=== PATIENT | male | born 1990 | race American Indian/Alaskan Native ===

== ENCOUNTER 2018-12-18 21:40 | Emergency (ER) | payer OTHER ==
--- NOTE | 2018-12-18 22:33 | Emergency Department Report ---
Blank Doc - Documentation Documentation: 4 -5 day history of flucutative sharp and spastic shoulder pain worse with rom. OTC rx and massages no help. no fever or chills. no trauma. Plan xray
--- NOTE | 2018-12-19 00:41 | Emergency Department Report ---
ED Upper Extremity Inj HPI - General Chief Complaint: Extremity Injury, Upper Stated Complaint: LEFT SHOULDER PAIN Time Seen by Provider: 12/18/18 22:31 Source: patient Mode of arrival: Ambulatory Limitations: No Limitations - History of Present Illness Complaint: Injury to:: left, shoulder -: days(s) (4 days has gotten worst), week(s) (2) Handedness: right Severity scale (0 -10): 10 - Related Data Previous Rx's Medication Instructions Recorded Last Taken Type Baclofen [Lioresal] 10 mg PO TID #15 tab 12/19/18 Unknown Rx Naproxen [Naprosyn TAB] 500 mg PO BID #15 tablet 12/19/18 Unknown Rx Allergies Allergy/AdvReac Type Severity Reaction Status Date / Time No Known Allergies Allergy Unverified 12/18/18 22:30 ED Review of Systems ROS: Stated complaint: LEFT SHOULDER PAIN Other details as noted in HPI Comment: All other systems reviewed and negative ED Past Medical Hx - Past Medical History Previous Medical History?: No - Surgical History Past Surgical History?: No - Social History Smoking Status: Current Every Day Smoker Substance Use Type: Alcohol, Marijuana - Medications Home Medications: Home Medications Medication Instructions Recorded Confirmed Last Taken Type Baclofen [Lioresal] 10 mg PO TID #15 tab 12/19/18 Unknown Rx Naproxen [Naprosyn TAB] 500 mg PO BID #15 tablet 12/19/18 Unknown Rx ED Physical Exam - General Limitations: No Limitations General appearance: alert, in no apparent distress - Head Head exam: Present: atraumatic, normocephalic - Eye Eye exam: Present: EOMI - ENT ENT exam: Present: mucous membranes moist - Neck Neck exam: Present: full ROM. Absent: lymphadenopathy - Respiratory Respiratory exam: Present: normal lung sounds bilaterally. Absent: respiratory distress - Cardiovascular Cardiovascular Exam: Present: regular rate, normal rhythm. Absent: systolic murmur, diastolic murmur, rubs, gallop - Expanded Upper Extremity Exam Left Shoulder Exam: Present: full ROM, tenderness, crepidus. Absent: swelling, abrasion, laceration, ecchymosis, deformity Upper Arm exam: Present: normal inspection, full ROM. Absent: tenderness, swelling - Back Exam Back exam: Present: normal inspection, full ROM. Absent: tenderness - Psychiatric Psychiatric exam: Present: normal affect, normal mood - Skin Skin exam: Present: warm, dry, intact, normal color. Absent: rash ED Course Vital Signs 12/18/18 22:28 Temperature 98.3 F Pulse Rate 83 Respiratory 18 Rate Blood Pressure 127/67 O2 Sat by Pulse 100 Oximetry ED Medical Decision Making - Radiology Data Radiology results: report reviewed Patient: ALTHEA GALLAGHER MR#: [id number] : 1990 Acct:[id number] Age/Sex: 28 / M ADM Date: 12/18/18 Loc: ED Attending Dr: Ordering Physician: NICHOLE GALLO Date of Service: 12/18/18 Procedure(s): XR shoulder 2+V LT Accession Number(s): [id number] cc: NICHOLE GALLO Fluoro Time In Minutes: PROCEDURE: XR SHOULDER 2+V LT TECHNIQUE: 3 views obtained of the left shoulder HISTORY: shoulder pain worse with rom COMPARISONS: No priors FINDINGS: No evidence of acute fracture or dislocation. Glenohumeral and acromioclavicular joints are within normal limits. IMPRESSION: Normal radiographic appearance of the left shoulder.. This document is electronically signed by Colin Deng MD., December 19 2018 01:03:46 AM ET Transcribed By: NIRAV Dictated By: COLIN DENG MD Electronically Authenticated By: COLIN DENG MD Signed Date/Time: 12/19/18 0105 DD/ 2359 TD/TT: 12/19/18 0000 Patient: ALTHEA GALLAGHER MR#: [id number] : 1990 Acct:[id number] Age/Sex: 28 / M ADM Date: 12/18/18 Loc: ED Attending Dr: Ordering Physician: NICHOLE GALLO Date of Service: 12/18/18 Procedure(s): XR spine cervical 2-3V Accession Number(s): [id number] cc: NICHOLE GALLO Fluoro Time In Minutes: PROCEDURE: XR SPINE CERVICAL 2-3V TECHNIQUE: 3 views of the cervical spine HISTORY: pain radiates to shoulder COMPARISONS: No priors. FINDINGS: There are minimal degenerative changes of the cervical spine with mild vertebral endplate bony spurring at C4 and C5. Alignment is anatomic. Intervertebral disc spaces are preserved. No prevertebral soft tissue swelling. Open-mouth view of the odontoid within normal limits. IMPRESSION: Minimal degenerative changes of the cervical spine with preservation of intervertebral disc spaces. Limited evaluation based on the 3 views obtained.. This document is electronically signed by Colin Deng MD., December 19 2018 01:05:32 AM ET Transcribed By: NIRAV Dictated By: COLIN DENG MD Electronically Authenticated By: COLIN DEGN MD Signed Date/Time: 12/19/18 0107 DD/ 0000 TD/TT: 12/19/18 0001 - Medical Decision Making Patient has been evaluated by this provider fast track. Ibuprofen and tramadol for pain management. X-ray of left shoulder completed. Critical care attestation.: If time is entered above; I have spent that time in minutes in the direct care of this critically ill patient, excluding procedure time. ED Disposition Clinical Impression: Shoulder pain, acute Qualifiers: Laterality: left Qualified Code(s): M25.512 - Pain in left shoulder Disposition: DC-01 TO HOME OR SELFCARE Is pt being admited?: No Does the pt Need Aspirin: No Condition: Stable Instructions: Arthralgia (ED), Shoulder Sprain (ED) Additional Instructions: Take pain medication and muscle relaxant as prescribed. These do not operate heavy machinery or take a muscle relaxant. If his symptoms persist or gets worse please follow his primary care provider. Prescriptions: Baclofen [Lioresal] 10 mg PO TID #15 tab Naproxen [Naprosyn TAB] 500 mg PO BID #15 tablet Referrals: JUAN SALAS MD [Primary Care Provider] - 3-5 Days Forms: Accompanied Note, Work/School Release Form(ED)
[2018-12-19] MEDS ORDERED: IBUPROFEN PO ONE (00:42)
[2018-12-19] MEDS ORDERED: ULTRAM PO ONE (00:42)
--- NOTE | 2018-12-19 01:05 | XRay Report ---
PROCEDURE: XR SHOULDER 2+V LT TECHNIQUE: 3 views obtained of the left shoulder HISTORY: shoulder pain worse with rom COMPARISONS: No priors FINDINGS: No evidence of acute fracture or dislocation. Glenohumeral and acromioclavicular joints are within normal limits. IMPRESSION: Normal radiographic appearance of the left shoulder.. This document is electronically signed by Colin Deng MD., December 19 2018 01:03:46 AM ET
--- NOTE | 2018-12-19 01:07 | XRay Report ---
PROCEDURE: XR SPINE CERVICAL 2-3V TECHNIQUE: 3 views of the cervical spine HISTORY: pain radiates to shoulder COMPARISONS: No priors. FINDINGS: There are minimal degenerative changes of the cervical spine with mild vertebral endplate bony spurri ng at C4 and C5. Alignment is anatomic. Intervertebral disc spaces are preserved. No prevertebral soft tissue swelling. Open-mouth view of the odontoid within normal limits. IMPRESSION: Minimal degenerative changes of the cervical spine with preservation of intervertebral disc spaces. Limited evaluation based on the 3 views obtained.. This document is electronically signed by Colin Deng MD., December 19 2018 01:05:32 AM ET
[2018-12-19 02:08] VITALS: BP 116/84
== END 2018-12-19 02:08 | disposition home or self-care (01) ==
LOC: ED 21:40
DX: M25.512 Pain in left shoulder (principal); F17.200 Nicotine dependence, unspecified, uncomplicated; F12.10 Cannabis abuse, uncomplicated
CPT/HCPCS: 72040

== ENCOUNTER 2019-06-21 19:26 | Emergency (ER) | payer SELFPAY ==
--- NOTE | 2019-06-21 19:44 | Event Note ---
ED Screening Note Date of service: 06/21/19 Time: 19:43 ED Screening Note: 29 y/o male comes in for right hand injury about 2 hours. This initial assessment/diagnostic orders/clinical plan/treatment(s) is/are subject to change based on patients health status, clinical progression and re-assessment by fellow clinical providers in the ED. Further treatment and workup at subsequent clinical providers discretion. Patient/guardian urged not to elope from the ED as their condition may be serious if not clinically assessed and managed. Initial orders include:
[2019-06-21] MEDS ORDERED: IBUPROFEN 600 MG TAB PO ONE (20:15)
[2019-06-21] MEDS ORDERED: HYDROcodone/ACETAMINOPHEN 7.5-325MG TAB PO ONE (20:15)
[2019-06-21] MEDS ORDERED: ONDANSETRON 4 MG ODT TAB PO ONE (20:15)
--- NOTE | 2019-06-21 20:27 | XRay Report ---
Right hand, 3 views INDICATION: Pain following injury today FINDINGS: The joint space is maintained. There is no acute fracture or dislocation. No spurring or ar thritic change. No bone lesion or periostitis. There is an old healed fracture of the distal fifth me tacarpal. There is soft tissue swelling over the dorsum of the hand.. Signer Name: Gilbert Fletcher MD Signed: 06/21/2019 8:22 PM Workstation Name: [id number]
--- NOTE | 2019-06-21 22:01 | Emergency Department Report ---
ED Upper Extremity Inj HPI - General Chief Complaint: Pediatric Trauma Stated Complaint: RIGHT HAND SWOLLEN THINK ITS BROKEN Time Seen by Provider: 06/21/19 19:41 Source: patient Mode of arrival: Ambulatory Limitations: No Limitations - History of Present Illness Initial Comments: Patient is a 29-year-old -[place] male with no past medical history who presents to the ED with complaint of acute onset persistent severe right hand pain and swelling after his hand was hit by the door at home about 6 hours ago. Patient states that the swelling the pain of worsening the last 2 hours. Patient denies numbness or tingling or weakness of right hand, fall, nausea, vomiting, neck pain, chest pain or shortness of breath. MD Complaint: Injury to:: right, hand -: Sudden, hour(s) (6) Other Extremity Injury: Hand: Right (swelling, pain) Other Injuries: none Handedness: right Place: home Severity scale (0 -10): 9 Improves With: movement Worsens With: none Context: direct blow Associated Symptoms: denies other symptoms. denies: weakness, numbness, neck pain, suspects foreign body, nausea/vomiting, heard/felt popping sensat - Related Data Previous Rx's Medication Instructions Recorded Last Taken Type Baclofen [Lioresal] 10 mg PO TID #15 tab 12/19/18 Unknown Rx Naproxen [Naprosyn TAB] 500 mg PO BID #15 tablet 12/19/18 Unknown Rx Acetaminophen/Codeine [Tylenol 1 tab PO Q6H PRN #12 tab 06/21/19 Unknown Rx /Codeine # 3 tab] Cyclobenzaprine [Flexeril] 10 mg PO Q8H PRN #21 tablet 06/21/19 Unknown Rx Ibuprofen [Motrin] 600 mg PO Q8H PRN #24 tablet 06/21/19 Unknown Rx Allergies Allergy/AdvReac Type Severity Reaction Status Date / Time No Known Allergies Allergy Unverified 12/18/18 22:30 ED Review of Systems ROS: Stated complaint: RIGHT HAND SWOLLEN THINK ITS BROKEN Other details as noted in HPI Constitutional: denies: chills, fever Eyes: denies: eye pain, eye discharge, vision change ENT: denies: ear pain, throat pain Respiratory: denies: cough, shortness of breath, wheezing Cardiovascular: denies: chest pain, palpitations Endocrine: no symptoms reported Gastrointestinal: denies: abdominal pain, nausea, diarrhea Genitourinary: denies: urgency, dysuria Musculoskeletal: joint swelling (Right hand), arthralgia (RIGHT HAND). denies: back pain Skin: denies: rash, lesions Neurological: denies: headache, weakness, paresthesias Psychiatric: denies: anxiety, depression Hematological/Lymphatic: denies: easy bleeding, easy bruising ED Past Medical Hx - Past Medical History Previous Medical History?: No Hx Hypertension: No Hx CVA: No Hx Heart Attack/AMI: No Hx Congestive Heart Failure: No Hx Diabetes: No Hx Deep Vein Thrombosis: No Hx Pulmonary Embolism: No Hx GERD: No Hx Liver Disease: No Hx Renal Disease: No Hx of Cancer: No Hx Sickle Cell Disease: No Hx Arthritis: No Hx Headaches / Migraines: No Hx Seizures: No Hx Kidney Stones: No Hx Psychiatric Treatment: No Hx Asthma: No Hx COPD: No Hx Tuberculosis: No Hx Dementia: No Hx HIV: No - Surgical History Past Surgical History?: No Hx Coronary Stent: No Hx Open Heart Surgery: No Hx Pacemaker: No Hx Internal Defibrillator: No Hx Cholecystectomy: No Hx Appendectomy: No Hx Breast Surgery: No - Social History Smoking Status: Current Every Day Smoker Substance Use Type: Alcohol, Marijuana - Medications Home Medications: Home Medications Medication Instructions Recorded Confirmed Last Taken Type Baclofen [Lioresal] 10 mg PO TID #15 tab 12/19/18 Unknown Rx Naproxen [Naprosyn TAB] 500 mg PO BID #15 tablet 12/19/18 Unknown Rx Acetaminophen/Codeine [Tylenol 1 tab PO Q6H PRN #12 tab 06/21/19 Unknown Rx /Codeine # 3 tab] Cyclobenzaprine [Flexeril] 10 mg PO Q8H PRN #21 tablet 06/21/19 Unknown Rx Ibuprofen [Motrin] 600 mg PO Q8H PRN #24 tablet 06/21/19 Unknown Rx ED Physical Exam - General Limitations: No Limitations General appearance: alert, in no apparent distress - Head Head exam: Present: atraumatic, normocephalic, normal inspection - Eye Eye exam: Present: normal appearance, PERRL, EOMI Pupils: Present: normal accommodation - ENT ENT exam: Present: normal exam, normal orophraynx, mucous membranes moist, TM's normal bilaterally, normal external ear exam - Neck Neck exam: Present: normal inspection, full ROM - Respiratory Respiratory exam: Present: normal lung sounds bilaterally. Absent: respiratory distress, wheezes, rales, chest wall tenderness, decreased breath sounds, prolonged expiratory - Cardiovascular Cardiovascular Exam: Present: regular rate, normal rhythm, normal heart sounds. Absent: systolic murmur, diastolic murmur, rubs, gallop - GI/Abdominal GI/Abdominal exam: Present: soft, normal bowel sounds. Absent: distended, tenderness, guarding - Rectal Rectal exam: Present: deferred - Extremities Exam Extremities exam: Present: normal inspection, full ROM, tenderness (Palpable right hand tenderness with swelling), normal capillary refill, joint swelling (right hand) - Back Exam Back exam: Present: normal inspection, full ROM. Absent: tenderness, muscle spasm, paraspinal tenderness - Neurological Exam Neurological exam: Present: alert, oriented X3, CN II-XII intact, normal gait, reflexes normal - Psychiatric Psychiatric exam: Present: normal affect, normal mood - Skin Skin exam: Present: warm, dry, intact, normal color. Absent: rash ED Course Vital Signs 06/21/19 06/21/19 20:30 20:33 Respiratory 18 16 Rate ED Medical Decision Making - Radiology Data Radiology results: report reviewed, image reviewed Right hand x-ray shows no acute fractures or subluxations but soft tissue swelling. - Medical Decision Making This is a 29-year-old male who presented to the ED with right hand pain and swelling after a door crashed onto his right hand about 6 hours ago. In the ED, patient is alert and oriented 3 and is not in distress but appears to be in pain. I don't x-ray shows no acute fractures or subluxations but soft tissue swelling. Patient was treated for pain in the ED and on reevaluation, patient's pain is well controlled with medications. Right hand was splinted with a Velcro splint and patient discharged home on pain medications and muscle relaxants, and was advised to follow-up with his primary care physician in 7-10 days for reevaluation. Patient was also advised to return to the ED immediately if symptoms get worse. - Differential Diagnosis right hand contusion; hand sprain; muscle strain Critical care attestation.: If time is entered above; I have spent that time in minutes in the direct care of this critically ill patient, excluding procedure time. ED Disposition Clinical Impression: Contusion of right hand Qualifiers: Encounter type: initial encounter Qualified Code(s): S60.221A - Contusion of right hand, initial encounter Sprain of right hand Qualifiers: Encounter type: initial encounter Qualified Code(s): S63.91XA - Sprain of unspecified part of right wrist and hand, initial encounter Disposition: TO HOME OR SELFCARE Is pt being admited?: No Does the pt Need Aspirin: No Condition: Stable Instructions: Contusion in Adults (ED), Hand Sprain (ED) Additional Instructions: Take medication with food, drink plenty of fluids and follow-up with your primary care physician in 7-10 days for reevaluation. Return to the ED immediately if symptoms get worse. Prescriptions: Cyclobenzaprine [Flexeril] 10 mg PO Q8H PRN #21 tablet PRN Reason: Muscle Spasm Ibuprofen [Motrin] 600 mg PO Q8H PRN #24 tablet PRN Reason: Pain Acetaminophen/Codeine [Tylenol /Codeine # 3 tab] 1 tab PO Q6H PRN #12 tab PRN Reason: Pain , Severe (7-10) Referrals: [facility] SEGUNDO [Primary Care Provider] - 3-5 Days Forms: Work/School Release Form(ED) Time of Disposition: 21:59 Print Language: ALBANIAN
[2019-06-21 23:38] VITALS: BP 127/82
== END 2019-06-21 22:22 | disposition home or self-care (01) ==
LOC: ED 19:26
DX: S63.91XA Sprain of unspecified part of right wrist and hand, initial encounter (principal); F17.200 Nicotine dependence, unspecified, uncomplicated; F12.10 Cannabis abuse, uncomplicated; Z79.899 Other long term (current) drug therapy; W22.8XXA Striking against or struck by other objects, initial encounter; Y93.89 Activity, other specified; Y92.009 Unspecified place in unspecified non-institutional (private) residence as the place of occurrence of the external cause; Y99.8 Other external cause status
CPT/HCPCS: Q0162